=== PATIENT | male | born 1995 | race African-American/Black ===

== ENCOUNTER 2022-03-13 11:24 | Emergency (ER) | payer SELFPAY ==
[~2022-03-13] VITALS: Ht 182.9 cm; Wt 83.9 kg
[2022-03-13 11:30] VITALS: BP 116/88
[2022-03-13] MEDS: ACETAMINOPHEN EXTRA STRENGTH 500 MG TAB PO ONE (12:07)
[2022-03-13 12:11] VITALS: BP 119/84
== END 2022-03-13 12:11 ==
LOC: MED 11:24
DX: S83.91XA Sprain of unspecified site of right knee, initial encounter (principal); Z98.890 Other specified postprocedural states; X58.XXXA Exposure to other specified factors, initial encounter; Y92.89 Other specified places as the place of occurrence of the external cause; Y93.89 Activity, other specified; Y99.8 Other external cause status
CPT/HCPCS: 73562; 99283